=== PATIENT | female | born 1985 | race Two or more races ===

== ENCOUNTER 2021-07-24 18:30 | Inpatient (IN) | payer MEDICAID ==
[~2021-07-24] VITALS: Ht 152.4 cm; Wt 113.4 kg
[2021-07-24] MEDS ORDERED: PRETAB PO (18:54)
[2021-07-24] MEDS ORDERED: CITRIC ACID/SODIUM CITRATE 30 ML UDC PO SCH (18:55)
[2021-07-24] MEDS ORDERED: LACTATED RINGERS 500 ML IV SCH (19:00)
[2021-07-24] MEDS ORDERED: TERBUTALINE 1 MG/ML VIAL SUBQ SCH (19:10)
[2021-07-24 19:16] VITALS: BP 113/65
[2021-07-24] MEDS ORDERED: TERBUTALINE 1 MG/ML VIAL SUBQ ONE (19:17)
[2021-07-24] MEDS: LACTATED RINGERS 1,000 ML IV SCH ×2 (19:36→23:40)
[2021-07-24 19:37] LABS: BASOPHILS # (AUTO) 0.1 K/uL (0.00-0.22); BASOPHILS % (AUTO) 0.9 % (0.0-2.0); EOSINOPHILS # (AUTO) 0.1 K/uL (0-0.4); EOSINOPHILS % (AUTO) 0.9 % (0.0-4.0); HEMOGLOBIN 9.2 g/dL (12.0-16.0); LYMPHOCYTES # (AUTO) 2.2 K/uL (2.5-16.5); LYMPHOCYTES % (AUTO) 27.5 % (20.5-51.1); MEAN CORPUSCULAR HEMOGLOBIN 23 pg (27-31); MEAN CORPUSCULAR HGB CONC 32 g/dL (33-37); MEAN CORPUSCULAR VOLUME 71.3 fL (80-94); MONOCYTES # (AUTO) 0.5 K/uL (0.8-1.0); NEUTROPHILS # (AUTO) 5.2 K/uL (1.8-7.7); NEUTROPHILS % (AUTO) 64.7 % (42.2-75.2); PLATELET COUNT (AUTO) 197 K/uL (140-450); RED BLOOD CELL COUNT(AUTO) 4.07 MIL/uL (4.20-5.40); RED CELL DISTRIBUTION WIDTH 17.4 % (11.6-13.7)
[2021-07-24] MEDS ORDERED: PROMETHAZINE 25 MG/ML VIAL IVP PRN (19:45)
[2021-07-24] MEDS ORDERED: NALBUPHINE 10 MG/ML AMP IVP PRN ×2 (19:45→20:35)
[2021-07-24 19:47] LABS: APPEARANCE,URINE CLEAR (CLEAR); BILIRUBIN,URINE NEGATIVE (NEGATIVE); BLOOD, URINE NEGATIVE (NEGATIVE); COLOR,URINE YELLOW (YELLOW); LEUKOCYTE ESTERASE ,URINE NEGATIVE (NEGATIVE); NITRITE, URINE NEGATIVE (NEGATIVE); UGLUCOSE NEGATIVE (NEGATIVE)
[2021-07-24] MEDS ORDERED: NALBUPHINE 10 MG/ML AMP ONE (19:49)
[2021-07-24] MEDS ORDERED: PROMETHAZINE 25 MG/ML VIAL ONE (19:49)
[2021-07-24 19:52] LABS: PROTHROMBIN TIME 9.7 secs (10.8-13.4)
[2021-07-24 19:55] LABS: ALBUMIN 2.3 g/dL (3.4-5.0); ANION GAP 12.1 (8-16); CARBON DIOXIDE 24.7 mmol/L (21-32); CREATININE 0.7 mg/dL (0.6-1.3); POTASSIUM 3.8 mmol/L (3.5-5.1); TOTAL BILIRUBIN 0.4 mg/dL (0.0-1.0)
--- NOTE | 2021-07-25 06:31 | NUR ---
PATIENT HAS BEEN SCREENED AND CATEGORIZED LOW NUTRITION RISK. PATIENT WILL BE SEEN WITHIN 7 DAYS OF ADMISSION. 07/31/[address]
[2021-07-25] MEDS: LACTATED RINGERS 1,000 ML IV SCH (07:17)
[2021-07-25] MEDS ORDERED: OXYTOCIN 20 UNITS/LR PREMIX 1,000 ML IV ONE (07:48)
[2021-07-25] MEDS ORDERED: fentaNYL citrate 0.05 MG/ML VIAL ONE (07:52)
[2021-07-25] MEDS ORDERED: MORPHINE PRES FREE 10 MG/10 ML AMP IV ONE (07:53)
[2021-07-25] MEDS ORDERED: ePHEDrine 50 MG/ML VIAL ONE (08:00)
[2021-07-25] MEDS ORDERED: KETOROLAC 30 MG/ML VIAL IVP PRN (08:25)
[2021-07-25] MEDS ORDERED: oxyCODONE/APAP 5/325 MG 1 TAB TAB PO PRN (08:25)
[2021-07-25] MEDS ORDERED: METHYLERGONOVINE 0.2 MG/ML AMP IM PRN (08:25)
[2021-07-25] MEDS ORDERED: TEMAZEPAM 15 MG CAP PO PRN (08:25)
[2021-07-25] MEDS ORDERED: KETOROLAC 60 MG/2 ML VIAL IM PRN (09:00)
[2021-07-25] MEDS ORDERED: ONDANSETRON 4 MG/2 ML VIAL IVP PRN (09:00)
[2021-07-25] MEDS ORDERED: NALOXONE 0.4 MG/ML VIAL IVP PRN ×2 (09:00)
[2021-07-25] MEDS: diphenhydrAMINE 50 MG/ML VIAL IVP PRN ×2 (10:11→14:59)
[2021-07-25] MEDS ORDERED: diphenhydrAMINE 50 MG/ML VIAL ONE (10:13)
[2021-07-25] MEDS: OXYTOCIN 20 UNITS in LACTATED RINGERS 1,000 ML IV SCH (17:23)
[2021-07-25] MEDS: DOCUSATE SOD/SENNA 50/8.6 MG 1 TAB PO SCH (21:00)
[2021-07-26] MEDS ORDERED: OXYTOCIN 20 UNITS/LR PREMIX 1,000 ML IV ONE (00:44)
[2021-07-26] MEDS: OXYTOCIN 20 UNITS in LACTATED RINGERS 1,000 ML IV SCH (01:37)
[2021-07-26 05:59] LABS: BASOPHILS % (AUTO) 0.1 % (0.0-2.0); EOSINOPHILS # (AUTO) 0.1 K/uL (0-0.4); EOSINOPHILS % (AUTO) 0.5 % (0.0-4.0); HEMATOCRIT 28.4 % (36-48); LYMPHOCYTES # (AUTO) 1.5 K/uL (2.5-16.5); LYMPHOCYTES % (AUTO) 14.2 % (20.5-51.1); MEAN CORPUSCULAR HEMOGLOBIN 23 pg (27-31); MEAN CORPUSCULAR HGB CONC 32 g/dL (33-37); MEAN CORPUSCULAR VOLUME 71.9 fL (80-94); MONOCYTES # (AUTO) 0.6 K/uL (0.8-1.0); MONOCYTES % (AUTO) 5.8 % (1.7-9.3); NEUTROPHILS # (AUTO) 8.6 K/uL (1.8-7.7); NEUTROPHILS % (AUTO) 79.4 % (42.2-75.2); PLATELET COUNT (AUTO) 169 K/uL (140-450); RED BLOOD CELL COUNT(AUTO) 3.95 MIL/uL (4.20-5.40); RED CELL DISTRIBUTION WIDTH 17.2 % (11.6-13.7); WHITE BLOOD COUNT (AUTO) 10.8 K/uL (4.8-10.8)
[2021-07-26] MEDS: oxyCODONE/APAP 5/325 MG 1 TAB TAB PO PRN ×2 (08:48→19:38)
[2021-07-26] MEDS: IBUPROFEN 800 MG TAB PO PRN ×2 (13:02→22:30)
[2021-07-26] MEDS ORDERED: CAMERA MC ONE (19:11)
[2021-07-26] MEDS: DOCUSATE SOD/SENNA 50/8.6 MG 1 TAB PO SCH (20:40)
[2021-07-26] MEDS: SIMETHICONE 80 MG TAB.CHEW PO PRN (20:40)
[2021-07-27] MEDS: oxyCODONE/APAP 5/325 MG 1 TAB TAB PO PRN ×3 (03:01→13:01)
[2021-07-27] MEDS: IBUPROFEN 800 MG TAB PO PRN ×2 (05:58→14:42)
[2021-07-27] MEDS: SIMETHICONE 80 MG TAB.CHEW PO PRN (08:43)
[2021-07-27] MEDS ORDERED: KETOROLAC 30 MG/ML VIAL IM ONE (14:45)
[2021-07-27] MEDS ORDERED: KETOROLAC 30 MG/ML VIAL ONE (14:48)
== END 2021-07-27 16:20 | disposition home or self-care (01) | DRG 539 ==
LOC: MLD 18:30 → OBSVTOIN 18:30 → MFCC 07-25 09:13
PROVIDERS: ADMIT Obstetrics & Gynecology; ATTEND Obstetrics & Gynecology
PROC: 0UB70ZZ Excision of Bilateral Fallopian Tubes, Open Approach (ICD-10-PCS; 2021-07-25)
PROC: 10D00Z1 Extraction of Products of Conception, Low, Open Approach (ICD-10-PCS; principal; 2021-07-25 08:00)
DX: O34.211 Maternal care for low transverse scar from previous cesarean delivery (principal); Z20.822 Contact with and (suspected) exposure to COVID-19; Z30.2 Encounter for sterilization; Z37.0 Single live birth; Z3A.38 38 weeks gestation of pregnancy
CPT/HCPCS: 36415; 80053; 81003; 85025; 85610; 85730; 86592; 86886; 86900; 86901; 87653-90; 88302; J0690; J1200; J1885; J2270; J2300; J2550; J2590; J3010; J3105; J7060; J7120